=== PATIENT | male | born 1955 | race Caucasian/White ===

== ENCOUNTER → 2018-05-14 | Outpatient (CLI) | payer BC ==
[~2018-05-14] MED LIST: CELE200C PO; FERR134T2 PO; HYDR12.58 PO; IOHEXOL 240 MG/ML 50ML VIAL. PO ONE; IOHEXOL 300 MG/ML 100ML VIAL. IV ONE; MELO15TA23 PO; OMEP20TA8 PO; WARF-78 PO; ZOLP10TA4 PO
--- NOTE | 2018-05-14 11:19 | KCIC ---
PQRS Compliance statement: One or more of the following individualized dose reduction techniques were utilized for this examination: 1. Automated exposure control. 2. Adjustment of the mA and/or kV according to patient size. 3. Use of iterative reconstruction technique. Indication:Left lower quadrant pain for 2 to 3 weeks[address] TECHNIQUE: CT abdomen and pelvis with IV contrast with multiplanar reformats. COMPARISON: None FINDINGS: Heart is normal in size. No pericardial or pleural effusion. Clear lung bases. Liver, spleen, gallbladder, pancreas, adrenals and kidneys are within normal limits. No enlarged retroperitoneal or pelvic adenopathy. No free pelvic fluid or ascites. No bowel obstruction. Normal appendix. The prostate and seminal vesicles show no large mass. Urinary bladder is within normal limits. No pneumoperitoneum. No suspicious bony lesion. IMPRESSION: No acute findings. Electronically signed by: Adam Abbott DO (05/14/2018 11:14 AM) [facility]
== END | disposition home or self-care (01) ==
LOC: KCIC CT 08:40
PROVIDERS: ATTEND Family Medicine
DX: R10.32 Left lower quadrant pain (principal); I10 Essential (primary) hypertension; Z87.891 Personal history of nicotine dependence
CPT/HCPCS: 74177; Q9967

== ENCOUNTER → 2019-02-14 | Outpatient (CLI) | payer BC ==
[~2019-02-14] MED LIST changes: -IOHEXOL 240 MG/ML 50ML VIAL. PO ONE; -IOHEXOL 300 MG/ML 100ML VIAL. IV ONE
--- NOTE | 2019-02-14 15:14 | KCIC ---
MRI Cervical Spine Without Contrast History: Cervical radiculopathy, left upper extremity numbness Technique: Multiplanar, multi sequential noncontrast MR imaging was performed of the cervical spine. Comparison: February 17, 2014 Findings: There is some motion degradation. Cervical cord caliber is within normal limits without new focal signal. There is no significant marrow edema. Cervical vertebral body stature and AP alignment are overall maintained. There is again [id number] C5-C6 degenerative disc disease, mild disc desiccation C3-4 and C6-7. C2-C3: Neural foramina and spinal canal are adequate. C3-C4: There is again minimal disc osteophyte complex and bulge. Central canal is adequate about 11 mm. There is again facet and uncovertebral degenerative change. There is moderate to severe left and probable moderate right neural foramina compromise. C4-C5: There is a new shallow protrusion eccentric to the far left lateral recess about 2 mm AP the ventral thecal sac minimal narrowing of the far left lateral recess. Central canal is adequate about 11 mm. There is facet degenerative change. There is possible mild narrowing of the right neural foramen. There is also likely at least mild narrowing of the left neural foramen greater in part by protrusion at the anterior proximal margin. C5-C6: There is a minimal disc osteophyte complex. Central canal is adequate 11 mm, mild narrowing of far lateral recesses bilaterally somewhat greater on the left. There is again uncovertebral and facet degenerative change. There is again fairly severe narrowing of the left neural foramen, likely at least moderate narrowing of the right neural foramen present. C6-C7: There is minimal disc osteophyte complex and bulge. Central canal is borderline about 10 mm, mild narrowing of the far left lateral recess as seen previously. There is uncovertebral degenerative change greater on the left. There is again severe narrowing of the left neural foramen, right neural foramen not significantly narrowed. C7-T1: Spinal canal and neural foramina are overall adequate. Impression: 1. There is degenerative disc disease greatest C5-C6, mild spondylosis. There is no new significant cervical spinal stenosis as. Shallow protrusion in the left lateral recess at C4-5 slightly indents the ventral thecal sac with minimal narrowing of the far left lateral recess. 2. There is multilevel facet and uncovertebral degenerative change resulting in multilevel cervical neural foramina compromise greatest left greater than right at C3-C4 and C5-C6, on the left at C6-7, lesser degree of narrowing bilaterally at C4-C5. Electronically signed by: Aidan Leblanc MD (02/14/2019 3:11 PM) [id number]
== END | disposition home or self-care (01) ==
LOC: KCIC MRI 09:50
PROVIDERS: ATTEND Family Medicine
DX: M50.122 Cervical disc disorder at C5-C6 level with radiculopathy (principal); M47.22 Other spondylosis with radiculopathy, cervical region; M48.02 Spinal stenosis, cervical region; M25.78 Osteophyte, vertebrae
CPT/HCPCS: 72141

== ENCOUNTER → 2019-04-02 | Outpatient (CLI) | payer BC ==
[~2019-04-02] MED LIST changes: +GABA-585 PO; +IOHEXOL 180 MG/ML 10 ML VIAL. ONE; +NAPR220C4 PO; +methylPREDNISolone ACETATE 40 MG/ML VIAL. ONE; +methylPREDNISolone ACETATE 80 MG/ML VIAL. ONE
--- NOTE | 2019-04-03 01:21 | PAIN ---
DATE OF SERVICE: 04/02/2019 INITIAL CONSULTATION FOR PAIN CLINIC CHIEF COMPLAINT: Neck and left upper extremity pain. HISTORY OF PRESENT ILLNESS: This is a 63-year-old male who presents with history of pain in the neck and left upper extremity for many years, worse over the past year or so, increasing without specific injury or accident. The patient reports significant pain radiating into the left upper extremity, shoulder as well as the pectoral region, scapular region and into the entire arm anterior, posterior as well as into the hand, especially the thumb and first 2 fingers. The patient reports it is constant, sharp, stabbing and throbbing, worse with activity, standing, walking, reaching over his head with his left hand, repetitive motions, lifting items. The patient reports no loss of motor function. It does not awake him from sleep at night, does not affect his bowel or bladder control or his ability to walk. He has had some chiropractic treatments recently without significant improvement and is doing some stretching on his own, he is also taking gabapentin, which seems to help, but is not sure of the effects. The patient reports no symptoms on the right upper extremity. Reports his disability rating from 0-10, 10 being the worst, is a 7 with family and home responsibilities and recreation, 5 with social activity, 7 with life support activities, and 0 with occupation and sexual behavior, self-care. The patient did have an MRI scan of the cervical spine, showing degenerative disk disease at C5-C6, mild spondylosis, no significant neural foraminal stenosis at that level. There is shallow protrusion in the left lateral recess at C4-C5 indenting the ventral thecal sac with minimal narrowing of the far left lateral recess, multilevel facet and uncovertebral degenerative change, resulting in multilevel cervical neural foraminal compromise, left greater than right, C3-C4, C5-C6 and on the left at C6-C7. PAST MEDICAL HISTORY: Significant for hypertension, dizziness, gastroesophageal reflux, quit smoking in 1998, history of arthritis. PREVIOUS SURGERY: Includes tonsillectomy, left total knee replacement, right ulnar nerve release and right foot surgery. CURRENT MEDICATIONS: Include hydrochlorothiazide, omeprazole, gabapentin, zolpidem, and Aleve. ALLERGIES: The patient has no known drug allergies. FAMILY HISTORY: Significant for bladder cancer and lung cancer. SOCIAL HISTORY: The patient drinks about 2 alcoholic drinks a day. Does not smoke, quit many years ago. Does not use any illegal, illicit or recreational drugs. He is , lives with his spouse, lives locally in [place], [place]. The patient continues to work for the railroad. REVIEW OF SYSTEMS: The patient's review of systems is positive for those items mentioned in history of present illness. All systems reviewed and otherwise negative. It is complete, full and well documented on the patient's chart. PHYSICAL EXAMINATION: VITAL SIGNS: The patient's blood pressure 139/93, pulse 69, respiratory rate 16, temperature 97.9 degrees Fahrenheit, height 6 feet 1 inch, weight 212 pounds. GENERAL: The patient is awake, alert, oriented, appropriate, very pleasant demeanor. HEENT: Head shows normocephalic, atraumatic. Extraocular movements are intact and symmetrical. Oral cavity shows mucous membranes moist and pink. Dentition is intact. NECK: Shows anterior throat supple without palpable lymphadenopathy noted. Swallow reflex symmetrical. CHEST: Shows normal on inspection. Breath sounds are clear bilaterally. HEART: Shows S1, S2 clear. No murmurs auscultated. ABDOMEN: Soft, nontender, nondistended. No palpable organomegaly is noted. No rebound or guarding demonstrated. BACK: Shows spine grossly in the midline. Normal appearing thoracic kyphosis and lumbar lordotic curvature and cervical lordotic curvature. Cervical paraspinous muscle shows symmetrical on inspection, with palpation shows some mild tenderness in the inferior aspect of the cervical paraspinous musculature bilaterally, but only diffusely without significant radiation. The patient shows full rotational motion of cervical spine, both laterally greater than 45 degrees right and left as well as full extension, full forward flexion without significant increase in pain. EXTREMITIES: The patient's upper extremities show deep tendon reflexes at 2+ in the biceps and triceps tendons. 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 Peripheral pulses are 2+ radial. No peripheral edema is noted. Shoulder shrug is strong and intact without loss of strength on resistance, but with some moderate pain in the left shoulder and into the left bicep with resistance. This is true with abduction of the shoulder at 90 degrees as well, but without significant loss of function or strength. SKIN: Shows warm and dry, good turgor. No edema. No sores, rashes or bruising throughout. IMPRESSION: 1. This is a 63-year-old male with long history of neck and left upper extremity pain, worse over the past year or so in a radicular fashion. 2. MRI scan of cervical spine as noted. 3. Hypertension. 4. Arthritis. 5. Gastroesophageal reflux. PLAN: Options were discussed with the patient including conservative medical managements, physical therapies and interventional techniques. He would like to pursue interventional techniques. We discussed a cervical epidural steroid injection using description as well as anatomical models to describe the procedure. Risks were then discussed including, but not limited to bleeding, infection, possibility of epidural hematoma, subsequent neurological compromise, dural puncture, headaches, spinal cord and/or nerve damage, side effects of steroid medication and poor results regarding pain control. The patient understands and wished to proceed. The patient will return to clinic in approximately 2 weeks for followup. He was counseled on return appointment, activity level and side effects to be aware of. DIAGNOSES: Cervical radiculopathy with cervical degenerative disk disease and cervical spondylosis. PROCEDURE: Cervical epidural steroid injection, translaminar approach C6-C7 level using C-arm fluoroscopic guidance under sterile prep and drape using local anesthetic. MEDICATION INJECTED: A total of 120 mg Depo-Medrol plus 5 mL of preservative-free normal saline and 2 mL of contrast. CONDITION AT DISCHARGE: Stable. The patient tolerated procedure well, had no complications. SONAM ZHENG MD DR: SURINDER/patrick JOB#: [id number] / [id number] KULDEEP Murray MD
== END | disposition home or self-care (01) ==
LOC: PNCL 09:14
PROVIDERS: ATTEND Anesthesiology
DX: M50.123 Cervical disc disorder at C6-C7 level with radiculopathy (principal); M47.22 Other spondylosis with radiculopathy, cervical region; I10 Essential (primary) hypertension; M19.90 Unspecified osteoarthritis, unspecified site; K21.9 Gastro-esophageal reflux disease without esophagitis; Z87.891 Personal history of nicotine dependence; Z98.890 Other specified postprocedural states; Z96.652 Presence of left artificial knee joint; Z79.899 Other long term (current) drug therapy; Z80.1 Family history of malignant neoplasm of trachea, bronchus and lung; Z80.52 Family history of malignant neoplasm of bladder
CPT/HCPCS: 62321; J1030; J1040; Q9965

== ENCOUNTER → 2019-09-17 | Outpatient (CLI) | payer BC ==
[~2019-09-17] MED LIST changes: -IOHEXOL 180 MG/ML 10 ML VIAL. ONE; -WARF-78 PO; +WARF5TAB2 PO; -methylPREDNISolone ACETATE 40 MG/ML VIAL. ONE; -methylPREDNISolone ACETATE 80 MG/ML VIAL. ONE
--- NOTE | 2019-09-17 13:49 | KCIC ---
EXAM: Cervical spine MRI without contrast. HISTORY: Cervical radiculopathy. TECHNIQUE: Multiplanar, multisequence magnetic resonance imaging of the cervical spine was performed without contrast. COMPARISON: 02/14/2019. FINDINGS: There is minimal retrolisthesis of C5 on C6. There is multilevel endplate remodeling and osteophytosis. There is no suspicious osseous lesion. There is no acute or subacute fracture. No spinal cord lesion is seen. The posterior fossa and skull base are unremarkable. At C2-C3, there is mild left facet arthropathy. There is no stenosis. At C3-C4, there is a left foraminal to extra foraminal disc osteophyte complex superimposed on a disc bulge and endplate remodeling. There is mild bilateral facet arthropathy. There is uncovertebral arthropathy. There is moderate left greater than right foraminal stenosis. At C4-C5, there is a left paracentral to foraminal disc protrusion superimposed on a disc bulge and endplate remodeling. There is moderate bilateral facet arthropathy. There is uncovertebral arthropathy. There is severe left foraminal stenosis. There is effacement of the left ventral thecal sac with deviation of the left ventral nerve ramus. There is no significant central canal stenosis. At C5-C6, there are bilateral paracentral to extra foraminal disc osteophyte complexes superimposed on a disc bulge and endplate remodeling. There is moderate bilateral facet arthropathy. There is uncovertebral arthropathy. There is moderate to severe right and severe left foraminal stenosis. There is slight effacement of the ventral thecal sac without significant central canal stenosis. At C6-C7, there is a left paracentral to extra foraminal disc protrusion and osteophyte complex superimposed on a disc bulge and endplate osteophytosis. There is moderate right facet arthropathy. There is left uncovertebral arthropathy. There is severe left foraminal stenosis. IMPRESSION: 1. Multilevel degenerative change involving the cervical spine, described in detail above. This is associated with moderate left greater than right foraminal stenosis at C3-C4, severe left foraminal stenosis at C4-C5, moderate to severe right and severe left foraminal stenosis at C5-C6, and severe left foraminal stenosis at C6-C7. 2. Findings are not significantly changed compared to the prior exam, allowing for differences in imaging technique. Electronically signed by: Enriqueta Perez MD (09/17/2019 1:46 PM) [id number]
== END | disposition home or self-care (01) ==
LOC: KCIC MRI 12:18
PROVIDERS: ATTEND Family Medicine
DX: M47.22 Other spondylosis with radiculopathy, cervical region (principal); M48.02 Spinal stenosis, cervical region; M25.78 Osteophyte, vertebrae; M50.123 Cervical disc disorder at C6-C7 level with radiculopathy
CPT/HCPCS: 72141

== ENCOUNTER 2019-12-30 15:25 | Emergency (ER) | payer BC ==
[~2019-12-30] VITALS: Ht 182.9 cm; Wt 90.0 kg
[2019-12-30 16:51] VITALS: BP 122/80
[2019-12-30] MEDS ORDERED: IV NORMAL SALINE 1000ML BAG 1,000 ML IV ONE ×2 (17:00→19:00)
[2019-12-30] MEDS ORDERED: ONDANSETRON PF 4 MG/2 ML VIAL. IVP ONE (17:00)
--- NOTE | 2019-12-30 17:00 | PHYS DOC ---
General Adult EDM: Chief Complaint: DIZZY/LIGHT HEADED HPI: HPI: History obtained from patient. Patient is a 64-year-old male with a history of hypertension, right knee replacement, recent right carpal tunnel surgery who presents with complaint of lightheadedness and nausea. He states he has felt unwell since his surgery. He states he had right carpal tunnel release surgery on December 21. He states 3 days later he developed a temperature of 101.0 that lasted for 1 day. He states since then he has had nausea. He notes 5 episodes of vomiting earlier today. He notes intermittent lightheadedness that is worse when he ambulates. Denies chest pain. Does note some increase shortness of breath. States he has been relatively immobile at home over the past several days. He states he just been sleeping and laying around. States that his right wrist has healed well and he had sutures removed today. Denies cough. Denies syncope. Denies feelings of irregular rapid heartbeat. Does note some abdominal distention and bloating. States his last time he had his left carpal tunnel release surgery there was concern for obstruction however it was revealed to be just constipation. He does endorse passing minimal flatus with 2 very small bowel movements. Denies blood in the emesis or stool. Denies swelling to the extremities. Denies any vertiginous symptoms. Denies vision changes. Denies hearing changes. Denies weakness in 1 extremity compared to the other. Denies any confusion. No other complaints. (KARINA CHAVARRIA DO) Review of Systems: Review of Systems: Constitutional: Denies fever or chills. [] Eyes: Denies change in visual acuity. [] HENT: Denies nasal congestion or sore throat. [] Respiratory: Denies cough or shortness of breath. [] Cardiovascular: Positive for lightheadedness GI: Positive for nausea and vomiting : Denies dysuria. [] Musculoskeletal: Denies back pain or joint pain. [] Integument: Denies rash. [] Neurologic: Denies headache, focal weakness or sensory changes. [] Endocrine: Denies polyuria or polydipsia. [] Lymphatic: Denies swollen glands. [] Psychiatric: Denies depression or anxiety. [] (KARINA CHAVARRIA DO) Heart Score: Risk Factors: Risk Factors: DM, Current or recent (<one month) smoker, HTN, HLP, family history of CAD, obesity. Risk Scores: Score 0 - 3: 2.5% MACE over next 6 weeks - Discharge Home Score 4 - 6: 20.3% MACE over next 6 weeks - Admit for Clinical Observation Score 7 - 10: 72.7% MACE over next 6 weeks - Early Invasive Strategies (KARINA CHAVARRIA DO) Current Medications: Current Medications Medications (Trade) Dose Ordered Sig/Jaz Start Time Stop Time Status Last Admin Dose Admin Ondansetron HCl (Zofran) 8 mg 1X ONCE 12/30/19 17:00 12/30/19 17:01 Sodium Chloride 1,000 ml @ 1,000 mls/hr 1X ONCE 12/30/19 17:00 12/30/19 17:59 (KARINA CHAVARRIA DO) Allergies: Allergies: Allergies Coded Allergies Type Severity Reaction Last Updated Verified No Known Drug Allergies 03/18/13 No (KARINA CHAVARRIA DO) Physical Exam: PE: Constitutional: Well developed, well nourished, no acute distress, non-toxic appearance. [] HENT: Normocephalic, atraumatic, bilateral external ears normal, oropharynx moist, no oral exudates, nose normal. [] Eyes: PERRLA, EOMI, conjunctiva normal, no discharge. [] Neck: Normal range of motion, no tenderness, supple, no stridor. [] Cardiovascular:Heart rate regular rhythm, no murmur [] Lungs & Thorax: Bilateral breath sounds clear to auscultation [] Abdomen: Soft, nontender, nonacute abdomen. No involuntary guarding or rigidity noted. No acute peritonitis. Skin: Warm, dry, no erythema, no rash. [] Back: No tenderness, no CVA tenderness. [] Extremities: No tenderness, no cyanosis, no clubbing, ROM intact, no edema. [] Neurologic: Alert with intact cognitive function. No aphasia, dysarthria, or neglect. GCS 15. Pupils 3 mm briskly reactive b/l. No APD present. Cranial nerves 2-12 grossly intact; no facial asymmetry present, tongue midline, shoulder shrugging strength intact. Strength 5/5 and symmetric throughout. Light touch sensation intact throughout. Cerebellar testing appropriate without evidence of dysdiadochokinesia. DTR's 2+ in all 4 extremities. Negative pronator drift bilaterally. Gait slowed Psychologic: Affect normal, judgement normal, mood normal. [] (KARINA CHAVARRIA DO) Current Patient Data: Labs: Laboratory Tests Test 12/30/19 17:08 White Blood Count 4.3 x10^3/uL Red Blood Count 4.35 x10^6/uL Hemoglobin 13.6 g/dL Hematocrit 38.2 % Mean Corpuscular Volume 88 fL Mean Corpuscular Hemoglobin 31 pg Mean Corpuscular Hemoglobin Concent 36 g/dL Red Cell Distribution Width 13.6 % Platelet Count 113 x10^3/uL Neutrophils (%) (Auto) 75 % Lymphocytes (%) (Auto) 15 % Monocytes (%) (Auto) 9 % Eosinophils (%) (Auto) 0 % Basophils (%) (Auto) 0 % Neutrophils # (Auto) 3.2 x10^3/uL Lymphocytes # (Auto) 0.7 x10^3/uL Monocytes # (Auto) 0.4 x10^3/uL Eosinophils # (Auto) 0.0 x10^3/uL Basophils # (Auto) 0.0 x10^3/uL Sodium Level 135 mmol/L Potassium Level 3.3 mmol/L Chloride Level 96 mmol/L Carbon Dioxide Level 24 mmol/L Anion Gap 15 Blood Urea Nitrogen 23 mg/dL Creatinine 1.3 mg/dL Estimated GFR (Cockcroft-Gault) 55.4 BUN/Creatinine Ratio 18 Glucose Level 107 mg/dL Lactic Acid Level 1.7 mmol/L Calcium Level 8.4 mg/dL Magnesium Level 2.2 mg/dL Total Bilirubin 0.7 mg/dL Aspartate Amino Transf (AST/SGOT) 59 U/L Alanine Aminotransferase (ALT/SGPT) 64 U/L Alkaline Phosphatase 56 U/L Troponin I Quantitative < 0.017 ng/mL NK-Ojj-H-Type Natriuretic Peptide 58 pg/mL Total Protein 6.6 g/dL Albumin 3.6 g/dL Albumin/Globulin Ratio 1.2 Current Medications Medications (Trade) Dose Ordered Sig/Jaz Route PRN Reason Start Time Stop Time Status Last Admin Dose Admin Sodium Chloride 1,000 ml @ 1,000 mls/hr 1X ONCE IV 12/30/19 17:00 12/30/19 17:59 DC 12/30/19 17:18 Ondansetron HCl (Zofran) 8 mg 1X ONCE IVP 12/30/19 17:00 12/30/19 17:01 DC 12/30/19 17:18 Vital Signs: Vital Signs Date Time Temp Pulse Resp B/P (MAP) Pulse Ox O2 Delivery O2 Flow Rate FiO2 12/30/19 15:59 97.4 74 20 100 97.4 (KARINA CHAVARRIA DO) EKG: EKG: [] EKG consistent with normal sinus rhythm. Ventricular rate of [address] flattening noted in the lateral precordial leads. No acute ST segment elevation appreciated. (KARINA CHAVARRIA DO) Radiology/Procedures: Radiology/Procedures: [] (KARINA CHAVARRIA DO) Radiology/Procedures: [facility] [address] [place] [address] IMAGING REPORT Signed PATIENT: SUSAN MISHRA ACCOUNT: [id number] : 1955 LOCATION: ER AGE: 64 SEX: M EXAM STATUS: REG ER ORD. PHYSICIAN: KARINA CHAVARRIA DO REASON: SOB, recent surgery. eval for PE. constipation PROCEDURE: CT ANGIO CHEST W ABD PEL W/ EXAM: CT Chest angiogram, Abdomen, and Pelvis with IV contrast INDICATION: Reason: SOB, recent surgery. eval for PE. constipation / Spl. Instructions: [id number] 90ML / History: TECHNIQUE: Multi-detector row CT images were acquired from the thoracic inlet through the ischial tuberosities with the use of IV contrast. Sagittal and coronal images were acquired from the transaxial data. All CT scans performed at this facility utilize dose optimization techniques as appropriate to the exam, including the following: Automated exposure control and adjustment of the mA and/or KV according to patient size (this includes techniques or standardized protocols for targeted exams where dose is indication/reason for exam). IV CONTRAST: Administered ORAL CONTRAST: Not administered COMPARISON: 05/14/[address] abdomen and pelvis with IV contrast FINDINGS: CHEST: CARDIOVASCULAR: Unremarkable. No evidence of pulmonary emboli. No evidence of aortic dissection or aneurysm. Normal heart size. No pericardial effusion. Minimal scattered coronary calcifications. MEDIASTINUM & PAKO: No adenopathy or masses. LUNGS: Moderate centrilobular emphysema with ill-defined groundglass attenuation opacities in the periphery of the lungs, upper lobe predominant. PLEURAL SPACE: No pleural effusions or pneumothorax. OSSEOUS & SOFT TISSUE: Unremarkable ABDOMEN/PELVIS: LIVER: Unremarkable BILIARY SYSTEM: Gallbladder is unremarkable. Bile ducts are not dilated. PANCREAS: Unremarkable SPLEEN: Unremarkable ADRENALS: Unremarkable KIDNEYS & URETERS: Unremarkable BLADDER: Distended REPRODUCTIVE ORGANS: Unremarkable GASTROINTESTINAL: The stomach, small bowel, and colon are unremarkable. The appendix is normal. MESENTERY/PERITONEUM/RETROPERITONEUM: Unremarkable VASCULAR: Unremarkable LYMPH NODES: No adenopathy OSSEOUS & SOFT TISSUES: Unremarkable IMPRESSION: 1. No pulmonary emboli. 2. Patchy groundglass opacities in the lungs bilaterally superimposed on underlying centrilobular emphysema. Atypical pneumonia is not excluded. 3. No acute pathology in the abdomen or pelvis on contrast enhanced CT. Electronically signed by: David Edge MD (12/30/2019 6:46 PM) [facility] [place]ATED and SIGNED BY: DAVID EDGE MD DATE: 12/30/19 1846 [facility] [address] [place] [address] IMAGING REPORT Signed PATIENT: USSAN MISHRA ACCOUNT: [id number] : 1955 LOCATION: ER AGE: 64 SEX: M EXAM STATUS: REG ER ORD. PHYSICIAN: KARINA CHAVARRIA DO REASON: dizziness PROCEDURE: CT HEAD WO CONTRAST EXAM: CT Head without IV contrast INDICATION: Reason: dizziness / Spl. Instructions: / History: TECHNIQUE: Multi-detector row CT images were obtained of the head without the use of IV contrast. All CT scans performed at this facility utilize dose optimization techniques as appropriate to the exam, including the following: Automated exposure control and adjustment of the mA and/or KV according to patient size (this includes techniques or standardized protocols for targeted exams where dose is indication/reason for exam). COMPARISON: None FINDINGS: BRAIN PARENCHYMA: No evidence of acute intraparenchymal hemorrhage or infarct. No abnormal parenchymal density or mass. VENTRICLES & EXTRA-AXIAL SPACES: Ventricles are within normal limits. Basilar cisterns are patent. No pathologic extra-axial fluid collection or mass. ORBITS: Orbital contents are unremarkable. SINUSES: Visualized paranasal sinuses and mastoid air cells are clear. OSSEOUS & SOFT TISSUES: Calvarium and skull base are intact. IMPRESSION: No acute intracranial pathology. Electronically signed by: David Edge MD (12/30/2019 6:38 PM) [facility] [place]CTATED and SIGNED BY: DAVID EDGE MD DATE: 12/30/191837 (MARIZA LANE DO) Course & Med Decision Making: Course & Med Decision Making Pertinent Labs and Imaging studies reviewed. (See chart for details) [] Patient is a 64-year-old male who presents with multiple complaints including exertional lightheadedness with some associated neck pain as well as shortness of breath with nausea. He also notes abdominal distention with lack of bowel movement recently postoperative from right carpal tunnel release surgery. EKG reveals no acute ischemic changes. Initial examination reveals NIH of 0. No focal neurologic deficits appreciated. Basic labs will be obtained. At This time multiple CT images are pending. I have signed out the patient's emergency department care to Dr. Lane. We discussed the history, physical exam findings, completed and pending laboratory results and imaging studies. We have also discussed the current treatment plan and expected clinical course. Please refer to chart for the patient's remaining emergency department course, final disposition, and clinical impression(s). (KARINA CHAVARRIA DO) Course & Med Decision Making Patient is a 64-year-old male who presented to ER with complaint of dizziness with trouble breathing, did not feel well after, tunnel surgery done on December 24. Patient did not has COVID-19 test before the operation. CT scan of chest today did not show evidence of PE, however it did show bilateral groundglass infiltrations consistent with viral pneumonia. Patient potassium level was low. Patient was given IV fluids and potassium supplement in the ER. Patient was in no acute distress, he was able to get up and walk around without any problem. Patient denies any chest pain, oxygen saturation was above 95% on room air when he walked. Patient was tested for COVID-19 at this time, result pending. With his symptoms and CT scan finding it is suspicious that patient had contracted COVID-19. Patient will be discharged home with COVID-19 instruction. He will need to call his family physician for further evaluation and follow- up. Patient is amenable to plan of care (MARIZA LANE DO) Robbie Disclaimer: Robbie Disclaimer: This electronic medical record was generated, in whole or in part, using a voice recognition dictation system. (KARINA CHAVARRIA DO) Departure Departure Impression: Primary Impression: Hypokalemia Additional Impressions: Dizziness Person under investigation for COVID-19 Disposition: 01 DC HOME SELF CARE/HOMELESS Condition: STABLE Referrals: KULDEEP WAY MD (PCP) PLEASE FOLLOW UP WITH YOUR DOCTOR THIS WEEK FOR REEVALUATION Patient Instructions: Dizziness, Hypokalemia Additional Instructions: You have been tested for or diagnosed with COVID-19. It is an infection caused by a new type of coronavirus. COVID-19 will cause cold-like or mild flu symptoms in most. It can cause more severe symptoms like problems breathing in some. There is no treatment for COVID-19. The body will clear the infection over time. Self-care will help to ease discomfort. Steps to Take: Self-Care Rest as needed. Healthy habits may help you feel better. Steps include: Choose healthy foods including fruits and vegetables. Drink water throughout the day. Get plenty of sleep each night. If you smoke, try to quit. It may ease breathing. Avoid alcohol. Keep Others Healthy The virus can spread to others. Droplets are released every time you sneeze or cough. The droplets can get into the mouth, nose, or eyes of people near you and lead to infection. To lower the chances of spreading COVID-19 to others: Stay at home until your doctor has said it is safe to leave. If you tested positive this will mean staying isolated until both of the following are true: At least 7 days have passed since the start of illness. You are free of fever for at least 72 hours without the use of medicine. During this time: - Avoid public areas, events, or transportation. Do not return to work or school until your doctor has said it is safe to do so. - Call ahead if you need to go to a medical center. Let them know you may have COVID-19. It will help them guide you where to go. They may also ask you to wear a facemask when you come to the office. - If you call for emergency medical services, let them know you may have COVID- 19. While at home: - Try to avoid close contact with others. Stay about 6 feet away. - If possible, spend most of your time in a separate room from others. - Use a face mask if you will be in close contact with others such as sharing a room or vehicle. - Have someone wipe down common surfaces in the home. Use household cotton roll packer every day on areas like doorknobs, counters, or sinks. - Cough or sneeze into a tissue. Throw the tissue away right after use. If a tissue is not available, cough or sneeze into your elbow. - Wash your hands often. Wash them after sneezing or coughing. Use soap and water and wash for at least 20 seconds. Alcohol based hand septic cleaner can be used if soap and water is not available. - Do not prepare food for others. Avoid sharing personal items like forks, spoons, or toothbrushes. - Avoid close contact with pets while you are sick. There is no evidence of the virus passing to pets. This is a safety step until more is known about this virus. Isolation can be frustrating. Social interaction can help. Keep in touch with friends and family through phone and tech options. You can still interact with others in your home, just keep a safe distance of about 6 feet. Follow-up: Your doctors office will check in with you to see if there are any changes in your health. You may be asked to keep track of symptoms to share with them. They will also let you know when you are clear to be in public again. Problems to Look Out For: Contact your doctor if your recovery is not going as you expect. Get emergency care if you have problems such as: - Trouble breathing - Nonstop chest pain or pressure - Changes in awareness, confusion, or problems waking - Lips or face have bluish color - Worsening of symptoms If you think you have an emergency, call for emergency medical services right away. As taken from [facility],KARINA Monsivais DO Dec 30, 2019 16:[address] DO Dec 30, 2019 21:59
--- NOTE | 2019-12-30 17:31 | EKG ---
[facility] [address] [place] [address] Test Date: 2019-12-30 Test Time: 16:45:26 Pat Name: SUSAN MISHRA Department: Room: Gender: M [employer] D[employer]: : 1955 Requested By: KARINA CHAVARRIA Order Number: [id number] Reading MD: Jason Vidal Measurements Intervals [place] Rate: 69 P: 51 GA: 174 QRS: 24 QRSD: 98 T: 40 QT: 424 QTc: 456 Interpretive Statements SINUS RHYTHM NORMAL ECG Electronically Signed On 12-31-2019 9:22:28 [employer] by Jason Vidal
[2019-12-30 17:33] LABS: BASO % 0 % (0-3); EOS % 0 % (0-3); HEMATOCRIT 38.2 % (39.0-53.0); HEMOGLOBIN 13.6 g/dL (13.0-17.5); LYMPH # 0.7 x10^3/uL (1.0-4.8); LYMPH % 15 % (24-48); MEAN CORPUSCULAR HEMOGLOBIN 31 pg (25-35); MEAN CORPUSCULAR HGB CONC 36 g/dL (31-37); MEAN CORPUSCULAR VOLUME 88 fL (79-100); MONO # 0.4 x10^3/uL (0.0-1.1); MONO % 9 % (0-9); NEUT # 3.2 x10^3/uL (1.8-7.7); NEUT % 75 % (31-73); PLATELET COUNT 113 x10^3/uL (140-400); RED BLOOD COUNT 4.35 x10^6/uL (4.30-5.70); RED CELL DISTRIBUTION WIDTH 13.6 % (11.5-14.5); WHITE BLOOD COUNT 4.3 x10^3/uL (4.0-11.0)
[2019-12-30 17:46] LABS: CALCIUM 8.4 mg/dL (8.5-10.1); CREATININE 1.3 mg/dL (0.7-1.3); GFR 55.4; POTASSIUM 3.3 mmol/L (3.5-5.1)
[2019-12-30 17:52] LABS: ALBUMIN 3.6 g/dL (3.4-5.0); ALBUMIN/GLOBULIN RATIO 1.2 (1.0-1.7); MAGNESIUM 2.2 mg/dL (1.8-2.4); TOTAL BILIRUBIN 0.7 mg/dL (0.2-1.0); TOTAL PROTEIN 6.6 g/dL (6.4-8.2)
[2019-12-30] MEDS ORDERED: IOHEXOL 350 MG/ML 100 ML VIAL. IV ONE (18:15)
[2019-12-30] MEDS ORDERED: METOCLOPRAMIDE HCL 10 MG/2 ML VIAL. IVP ONE (18:30)
--- NOTE | 2019-12-30 18:41 | RAD ---
EXAM: CT Head without IV contrast INDICATION: Reason: dizziness / Spl. Instructions: / History: TECHNIQUE: Multi-detector row CT images were obtained of the head without the use of IV contrast. All CT scans performed at this facility utilize dose optimization techniques as appropriate to the exam, including the following: Automated exposure control and adjustment of the mA and/or KV according to patient size (this includes techniques or standardized protocols for targeted exams where dose is indication/reason for exam). COMPARISON: None FINDINGS: BRAIN PARENCHYMA: No evidence of acute intraparenchymal hemorrhage or infarct. No abnormal parenchymal density or mass. VENTRICLES & EXTRA-AXIAL SPACES: Ventricles are within normal limits. Basilar cisterns are patent. No pathologic extra-axial fluid collection or mass. ORBITS: Orbital contents are unremarkable. SINUSES: Visualized paranasal sinuses and mastoid air cells are clear. OSSEOUS & SOFT TISSUES: Calvarium and skull base are intact. IMPRESSION: No acute intracranial pathology. Electronically signed by: Shazia Edge MD (12/30/2019 6:38 PM) [facility] [place]
--- NOTE | 2019-12-30 18:49 | RAD ---
EXAM: CT Chest angiogram, Abdomen, and Pelvis with IV contrast INDICATION: Reason: SOB, recent surgery. eval for PE. constipation / Spl. Instructions: [id number] 90ML / History: TECHNIQUE: Multi-detector row CT images were acquired from the thoracic inlet through the ischial tuberosities with the use of IV contrast. Sagittal and coronal images were acquired from the transaxial data. All CT scans performed at this facility utilize dose optimization techniques as appropriate to the exam, including the following: Automated exposure control and adjustment of the mA and/or KV according to patient size (this includes techniques or standardized protocols for targeted exams where dose is indication/reason for exam). IV CONTRAST: Administered ORAL CONTRAST: Not administered COMPARISON: 05/14/[address] abdomen and pelvis with IV contrast FINDINGS: CHEST: CARDIOVASCULAR: Unremarkable. No evidence of pulmonary emboli. No evidence of aortic dissection or aneurysm. Normal heart size. No pericardial effusion. Minimal scattered coronary calcifications. MEDIASTINUM & PAKO: No adenopathy or masses. LUNGS: Moderate centrilobular emphysema with ill-defined groundglass attenuation opacities in the periphery of the lungs, upper lobe predominant. PLEURAL SPACE: No pleural effusions or pneumothorax. OSSEOUS & SOFT TISSUE: Unremarkable ABDOMEN/PELVIS: LIVER: Unremarkable BILIARY SYSTEM: Gallbladder is unremarkable. Bile ducts are not dilated. PANCREAS: Unremarkable SPLEEN: Unremarkable ADRENALS: Unremarkable KIDNEYS & URETERS: Unremarkable BLADDER: Distended REPRODUCTIVE ORGANS: Unremarkable GASTROINTESTINAL: The stomach, small bowel, and colon are unremarkable. The appendix is normal. MESENTERY/PERITONEUM/RETROPERITONEUM: Unremarkable VASCULAR: Unremarkable LYMPH NODES: No adenopathy OSSEOUS & SOFT TISSUES: Unremarkable IMPRESSION: 1. No pulmonary emboli. 2. Patchy groundglass opacities in the lungs bilaterally superimposed on underlying centrilobular emphysema. Atypical pneumonia is not excluded. 3. No acute pathology in the abdomen or pelvis on contrast enhanced CT. Electronically signed by: Shazia Edge MD (12/30/2019 6:46 PM) [facility] [place]
[2019-12-30] MEDS ORDERED: POTASSIUM CHLORIDE 20 MEQ TABLET.ER. PO ONE (19:00)
--- NOTE | 2020-01-01 15:57 | NUR ---
IP: Attempted to call COVID results. No answer. No capability to leave a voicemail. Addendum: 01/01/20 at 1609 by KINSEY PRAJAPATI RN IP: Called a second time and pt answered. Informed him of positive COVID test and need to quarantine for 10-14 days pending his symptoms. Pt verbalized understanding.
== END 2019-12-30 22:44 | disposition home or self-care (01) ==
LOC: ER 15:25
DX: U07.1 COVID-19 (principal); E87.6 Hypokalemia; R42 Dizziness and giddiness; R11.2 Nausea with vomiting, unspecified; R06.02 Shortness of breath; I10 Essential (primary) hypertension; Z98.890 Other specified postprocedural states
CPT/HCPCS: 36415; 70450; 71275; 74177; 80053; 83605; 83735; 83880; 84484; 85025; 93005; 96361; 96374; 96375; 99285; J2405; J2765; J7030; Q9967; U0003; C9803